=== PATIENT | male | born 1960 | race Caucasian/White ===

== ENCOUNTER 2016-10-10 19:17 | Inpatient (IN) | payer OTHER ==
[2016-10-10 19:49] VITALS: BMI 24.9
--- NOTE | 2016-10-10 20:28 | HP ---
CIWA Score - CIWA Score Nausea/Vomitin Muscle Tremors: 4-Moderate,w/Arms Extend Anxiety: 4-Mod. Anxious/Guarded Agitation: 4-Moderately Restless Paroxysmal Sweats: 1-Minimal Palms Moist Orientation: 1-Uncertain about Date Tacttile Disturbances: 0-None Auditory Disturbances: 0-None Visual Disturbances: 0-None Headache: 2-Mild CIWA-Ar Total Score: 18 Admission ROS [facility] - HPI Chief Complaint: withdrawal sx patient began xanax 8 mg po daily x 5 years, patient went to [facility] er for panic attack, no further treatment was provided at [facility], transferred to [facility] for xanax detox as per recommended by the ER Allergies/Adverse Reactions: Allergies Allergy/AdvReac Type Severity Reaction Status Date / Time Sulfa (Sulfonamide Allergy Unknown unknown Verified 09/15/11 20:00 Antibiotics) History of Present Illness: 55 years old male with long history of xanax dependence, has diabetes hypertension and panic attack is admitted to detox Exam Limitations: No Limitations - Ebola screening Have you traveled outside of the country in the last 21 days: No Have you had contact with anyone from an Ebola affected area: No Have you been sick,other than usual withdrawal symptoms: No Do you have a fever: No - Review of Systems Constitutional: Chills, Loss of Appetite, Changes in sleep, Unintentional Wgt. Loss EENT: reports: Blurred Vision (secondary to diabetes), Hearing Loss (wax) Respiratory: reports: No Symptoms reported Cardiac: reports: Palpitations GI: reports: Nausea, Poor Appetite, Poor Fluid Intake, Vomiting, Abdominal cramping : reports: No Symptoms Reported Musculoskeletal: reports: Back Pain Integumentary: reports: Change in Color (right andrea) Neuro: reports: Tremors Endocrine: reports: No Symptoms Reported Hematology: reports: No Symptoms Reported Psychiatric: reports: Judgement Intact, Anxious Other Systems: Reviewed and Negative Patient History - Patient Medical History Hx Anemia: No Hx Asthma: No Hx Chronic Obstructive Pulmonary Disease (COPD): No Hx Cancer: No Hx Cardiac Disorders: No Hx Congestive Heart Failure: No Hx Hypertension: No Hx Hypercholesterolemia: No Hx Pacemaker: No HX Cerebrovascular Accident: No Hx Seizures: No Hx Dementia: No Hx Diabetes: Yes Hx Gastrointestinal Disorders: No Hx Liver Disease: No Hx Genitourinary Disorders: No Hx Sexually Transmitted Disorders: No Hx Renal Disease (ESRD): No Hx Thyroid Disease: No Hx Human Immunodeficiency Virus (HIV): No Hx Hepatitis C: Yes Hx Depression: Yes Hx Suicide Attempt: No Hx Bipolar Disorder: No Hx Schizophrenia: No - Patient Surgical History Past Surgical History: No Hx Neurologic Surgery: No Hx Cataract Extraction: No Hx Cardiac Surgery: No Hx Lung Surgery: No Hx Breast Surgery: No Hx Breast Biopsy: No Hx Abdominal Surgery: No Hx Appendectomy: No Hx Cholecystectomy: No Hx Genitourinary Surgery: No Hx Orthopedic Surgery: Yes (right hand mid digital finger 1979) Anesthesia Reaction: No - PPD History Previous Implant?: Yes Documented Results: Negative w/o proof Implanted On Prior [facility] Admission?: No PPD to be Administered?: Yes - Smoking Cessation Smoking history: Never smoked Have you smoked in the past 12 months: No Aproximately how many cigarettes per day: 0 Hx Chewing Tobacco Use: No Initiated information on smoking cessation: No - Substance & Tx. History Hx Alcohol Use: No Hx Substance Use: Yes Substance Use Type: Tranquilizers Hx Substance Use Treatment: Yes - Substances Abused Alprazolam (Xanax) Route: Oral Frequency: Daily Amount used: 8 mg Age of first use: 50 Date of Last Use: 10/08/16 Family Disease History - Family Disease History Family Disease History: Heart Disease: Father (), Sister (), Respiratory: Mother () Admission Physical Exam S - Vital Signs Vital Signs: Vital Signs - 24 hr 10/10/16 19:34 Temperature 98.8 F Pulse Rate 98 H Respiratory 20 Rate Blood Pressure 157/94 - Physical General Appearance: Yes: Appropriately Dressed, Moderate Distress, Thin, Tremorous, Irritable, Sweating, Anxious HEENTM: Yes: Hearing grossly Normal, Normal ENT Inspection, Normocephalic, Normal Voice, Hearing Decreased (left ear wax) Respiratory: Yes: Chest Non-Tender, Lungs Clear, Normal Breath Sounds, No Respiratory Distress, No Accessory Muscle Use Neck: Yes: Supple, Trachea in good position Breast: Yes: Breasts Symetrical Cardiology: Yes: Regular Rhythm, Regular Rate, S1, S2 Abdominal: Yes: Non Tender, Soft, Increased Bowel Sounds Genitourinary: Yes: Within Normal Limits Back: Yes: Normal Inspection Musculoskeletal: Yes: full range of Motion, Gait Steady Extremities: Yes: Normal Range of Motion, Non-Tender, Tremors Neurological: Yes: Alert, Motor Strength 5/5, Normal Response, Numbness (both legs), Depressed Affect Integumentary: Yes: Warm, Moist Lymphatic: Yes: Within Normal Limits - Diagnostic (1) Sedative, hypnotic or anxiolytic dependence with withdrawal, uncomplicated Current Visit: Yes Status: Acute (2) Diabetes mellitus type II, controlled Current Visit: Yes Status: Acute Qualifiers: Diabetes mellitus complication status: with neurologic complications Diabetes mellitus complication detail: with other neurological complication Diabetes mellitus fdc insulin use: without fdc use Qualified Code(s): E11.49 - Type 2 diabetes mellitus with other diabetic neurological complication (3) Hypertension Current Visit: Yes Status: Acute Qualifiers: Hypertension type: essential hypertension Qualified Code(s): I10 - Essential (primary) hypertension (4) Hepatitis C antibody test positive Current Visit: Yes Status: Chronic (5) Weight loss Current Visit: Yes Status: Acute (6) Methadone maintenance therapy patient Current Visit: Yes Status: Acute Comment: 140 mg verification pending Cleared for Admission S - Detox or Rehab [facility] Level of Care: Medically Managed Detox Regimen/Protocol: Valium [facility] Breath Alcohol Content Breath Alcohol Content: 0 Urine Drug Screen - Results Drug Screen Negative: No Urine Drug Screen Results: BZO-Benzodiazepines, MTD-Methadone
[2016-10-10] MEDS ORDERED: MAG HYDROX/AL HYDROX/SIMETH 30 ML UNIT-DOSE CUP PO PRN (20:38)
[2016-10-10] MEDS ORDERED: guaiFENesin/D-METHORPHAN HB 10 ML UNIT-DOSE CUPS PO PRN (20:38)
[2016-10-10] MEDS ORDERED: IBUPROFEN 400 MG TABLET (FP) PO PRN (20:38)
[2016-10-10] MEDS ORDERED: P-EPHED 60MG/TRIPROLIDI 2.5MG TABLET PO PRN (20:38)
[2016-10-10] MEDS ORDERED: ACETAMINOPHEN 325 MG TABLET (FP) PO PRN (20:38)
[2016-10-10] MEDS ORDERED: diazePAM 5 MG TABLET PO ONE (20:38)
[2016-10-10] MEDS ORDERED: MAGNESIUM HYDROX 2400MG/30ML ORAL SUSPENSION 30 ML CUP PO PRN (20:38)
[2016-10-10] MEDS ORDERED: diphenhydrAMINE HCL 50 MG CAPSULE PO PRN (20:38)
[2016-10-10] MEDS ORDERED: MAGNESIUM CITRATE 300 ML BOTTLE PO PRN (20:38)
[2016-10-10] MEDS ORDERED: LOPERAMIDE HCL 2 MG CAPSULE PO PRN (20:38)
[2016-10-10] MEDS ORDERED: MENTHOL/PHENOL 1 EACH UD MM PRN (20:38)
[2016-10-10] MEDS ORDERED: ONDANSETRON *ODT* 4 MG TABLET SL PRN (20:47)
[2016-10-10] MEDS: ENALAPRIL MALEATE 5 MG TABLET (FP) PO SCH ×2 (21:48→22:55)
[2016-10-10] MEDS: THIAMINE HCL 100 MG TABLET (FP) PO SCH (23:21)
[2016-10-10] MEDS: CARBAMIDE PEROXIDE 6.5% OTIC 15 ML BOTTLE AS SCH (23:24)
[2016-10-10] MEDS: diazePAM 5 MG TABLET PO SCH (23:27)
[2016-10-11] MEDS: diazePAM 5 MG TABLET PO PRN ×3 (00:59→16:55)
[2016-10-11 01:16] LABS: URINE APPEARANCE CLEAR; URINE BILIRUBIN NEGATIVE (NEGATIVE); URINE BLOOD NEGATIVE (NEGATIVE); URINE COLOR AMBER; URINE GLUCOSE (UA) 1+ (NEGATIVE); URINE KETONE NEGATIVE (NEGATIVE); URINE LEUK ESTERASE NEGATIVE (NEGATIVE); URINE NITRITE NEGATIVE (NEGATIVE); URINE UROBILINOGEN 2.0 E.U/dl E.U./dl (0.2-1.0)
[2016-10-11 01:23] LABS: URINE PROTEIN 1+ (NEGATIVE)
[2016-10-11 01:27] LABS: URINE HYALINE CAST 11 /lpf; URINE MUCUS FEW; URINE RBC <1 /hpf (0-3); URINE WBC 3 /hpf (3-5)
[2016-10-11] MEDS: diazePAM 5 MG TABLET PO SCH ×3 (05:32→22:11)
[2016-10-11] MEDS ORDERED: metFORMIN HCL 500 MG TABLET (FP) PO SCH (07:00)
[2016-10-11] MEDS ORDERED: METHADONE HCL 10 MG TABLET PO SCH (08:45)
--- NOTE | 2016-10-11 09:30 | EKG ---
Test Reason : Blood Pressure : / mmHG Vent. Rate : 080 BPM Atrial Rate : 080 BPM P-R Int : 118 ms QRS Dur : 102 ms QT Int : 374 ms P-R-T Axes : 035 -66 003 degrees QTc Int : 431 ms NORMAL SINUS RHYTHM LEFT ANTERIOR FASCICULAR BLOCK ABNORMAL ECG WHEN COMPARED WITH ECG OF 15-SEP-2011 22:24, NO SIGNIFICANT CHANGE WAS FOUND Confirmed by ENIO DELA CRUZ MD ([id number]) on 10/11/2016 9:29:50 AM Referred By: Bruno Castañeda Confirmed By:ENIO DELA CRUZ MD
--- NOTE | 2016-10-11 09:50 | PN ---
S CIWA - CIWA Score Nausea/Vomitin Muscle Tremors: 4-Moderate,w/Arms Extend Anxiety: 4-Mod. Anxious/Guarded Agitation: 4-Moderately Restless Paroxysmal Sweats: 3 Orientation: 0-Oriented Tacttile Disturbances: 1-Very Mild Itch/Numbness Auditory Disturbances: 0-None Visual Disturbances: 0-None Headache: 0-None Present CIWA-Ar Total Score: 19 [facility] Progress Note (SOAP) Subjective: nausea, sweats, itnerrupted sleep, anxiety, tremor, Objective: 10/11/16 09:49 Vital Signs - 8 hr 10/11/16 10/11/16 03:27 06:00 Temperature 97.3 F L Pulse Rate 64 Respiratory 20 18 Rate Blood Pressure 124/64 Laboratory Tests 10/11/16 10/11/16 00:45 05:31 POC Glucometer 117 Urine Color Maria R Urine Appearance Clear Urine pH 5.0 D Ur Specific [place] 1.032 Urine Protein 1+ H Urine Glucose (UA) 1+ H Urine Ketones Negative Urine Blood Negative Urine Nitrite Negative Urine Bilirubin Negative Urine Urobilinogen 2.0 e.u/dl Ur Leukocyte Esterase Negative Urine RBC <1 Urine WBC 3 Ur Epithelial Cells Rare Hyaline Casts 11 Urine Mucus Few labs still pending Assessment: 10/11/16 09:49 withdrawal sx, methadone dose verified 140mg NATALIE crisostomo 10/10/2016 Plan: cont deto, methadone ordred, fluids
[2016-10-11] MEDS: PRENATAL VITAMINS W/ FOLIC ACID TABLET (FP) PO SCH (10:15)
[2016-10-11] MEDS ORDERED: METHADONE HCL 40 MG DISPERSABLE TABLET ONE (10:16)
[2016-10-11] MEDS: METHADONE 120 MG, METHADONE 20 MG PO SCH (10:16)
[2016-10-11] MEDS ORDERED: METHADONE HCL 10 MG TABLET ONE (10:16)
[2016-10-11] MEDS: NICOTINE 21 MG/24 HOURS TOPICAL PATCH TD SCH (10:18)
[2016-10-11 10:21] LABS: MCH 31.6 pg (25.7-33.7); MCHC 33.8 g/dl (32.0-35.9); MEAN CELL VOLUME 93.7 fl (80-96); MEAN PLT VOLUME 7.9 fl (7.5-11.1); PLATELET COUNT 130 K/MM3 (134-434); RDW 13.1 % (11.9-15.9); WHITE BLOOD COUNT 9.5 K/mm3 (4.0-10.0)
[2016-10-11] MEDS: ENALAPRIL MALEATE 5 MG TABLET (FP) PO SCH ×2 (11:09→11:39)
[2016-10-11] MEDS: CARBAMIDE PEROXIDE 6.5% OTIC 15 ML BOTTLE AS SCH ×2 (11:51→22:13)
[2016-10-11 12:12] LABS: ALBUMIN 3.8 g/dl (3.4-5.0); ALK PHOS 54 U/L (45-117); ANION GAP 12 (8-16); CALCIUM 8.6 mg/dL (8.5-10.1); CO2 31 mmol/L (21-32); CREATININE 1.1 mg/dL (0.7-1.3); GLUCOSE,RANDOM 84 mg/dL (74-106); SGOT/AST 77 U/L (15-37); SGPT/ALT 65 U/L (12-78); TOT PROT 6.8 g/dl (6.4-8.2)
--- NOTE | 2016-10-11 14:38 | CONSULT ---
[facility] Psychiatric Consult - Data Date of interview: 10/11/16 Admission source: [facility] Identifying data: First admission to [facility] for this 55 y/o male seeking detox treatment on for opioid and benzodiazepine dependence ( xanax).Patient is single without children,domiciled,unemployed and reportedly deprived of any source of income. Substance Abuse History: - Smoking Cessation. Smoking history: Never smoked. Have you smoked in the past 12 months: No. Aproximately how many cigarettes per day: 0. Hx Chewing Tobacco Use: No. Initiated information on smoking cessation: No. - Substance & Tx. History. Hx Alcohol Use: No. Hx Substance Use: Yes. Substance Use Type: Tranquilizers. Hx Substance Use Treatment: Yes. - Substances Abused. Alprazolam (Xanax). Route: Oral. Frequency: Daily. Amount used: 8 mg. Age of first use: 50. Date of Last Use: 10/08/16. Discussed with patient in this interview.He confirmed this pattern of substance use. Medical History: Hepatitis C,hypertension and diabetes mellitus. Psychiatric History: No reported history of psychiatric hospitalizations.No OPD care.Patient reports being prescribed xanax up to 8 mg daily (five years of abuse).Mr Devaughn denies history of suicide attempts.Currently on methadone maintenace (140 mg/day) at the [facility] MMT program. Physical/Sexual Abuse/Trauma History: Patient denies. Additional Comment: Urine Drug Screen Results: BZO-Benzodiazepines, MTD- Methadone.Noted. Mental Status Exam - Mental Status Exam Alert and Oriented to: Time, Place, Person Cognitive Function: Good Patient Appearance: Unkempt, Disheveled Mood: Withdrawn, Anxious Affect: Mood Congruent Patient Behavior: Appropriate, Cooperative Speech Pattern: Clear Voice Loudness: Normal Thought Process: Goal Oriented Thought Disorder: Not Present Hallucinations: Denies Suicidal Ideation: Denies Homicidal Ideation: Denies Insight/Judgement: Poor Sleep: Poorly Appetite: Good Muscle strength/Tone: Normal Gait/Station: Normal Psychiatric Findings - Problem List ([place] 1, 2,3) (1) Methadone maintenance therapy patient Current Visit: Yes Status: Acute Comment: 140 mg verification pending (2) Sedative, hypnotic or anxiolytic dependence with withdrawal, uncomplicated Current Visit: Yes Status: Acute (3) Diabetes mellitus type II, controlled Current Visit: Yes Status: Chronic Qualifiers: Diabetes mellitus complication status: with neurologic complications Diabetes mellitus complication detail: with other neurological complication Diabetes mellitus mcfp insulin use: without mcfp use Qualified Code(s): E11.49 - Type 2 diabetes mellitus with other diabetic neurological complication (4) Hypertension Current Visit: Yes Status: Chronic Qualifiers: Hypertension type: essential hypertension Qualified Code(s): I10 - Essential (primary) hypertension (5) Weight loss Current Visit: Yes Status: Chronic (6) Hepatitis C antibody test positive Current Visit: Yes Status: Chronic - Initial Treatment Plan Initial Treatment Plan: Psychoeducation.Detoxification.Zolpidem 5 mg po hs prn.Patient made aware of risk of parasomnias.He agrees with this plan.Observation.
[2016-10-11] MEDS: metFORMIN HCL 500 MG TABLET (FP) PO SCH (16:54)
[2016-10-11] MEDS: THIAMINE HCL 100 MG TABLET (FP) PO SCH (22:12)
[2016-10-11] MEDS: ZOLPIDEM TARTRATE 5 MG TABLET PO PRN (22:12)
[2016-10-12] MEDS ORDERED: METHADONE HCL 10 MG TABLET ONE (05:11)
[2016-10-12] MEDS ORDERED: METHADONE HCL 40 MG DISPERSABLE TABLET ONE (05:12)
[2016-10-12] MEDS: METHADONE 120 MG, METHADONE 20 MG PO SCH (05:30)
[2016-10-12] MEDS: diazePAM 5 MG TABLET PO PRN ×3 (05:33→18:20)
[2016-10-12] MEDS: metFORMIN HCL 500 MG TABLET (FP) PO SCH ×2 (08:00→16:55)
[2016-10-12] MEDS: PRENATAL VITAMINS W/ FOLIC ACID TABLET (FP) PO SCH (10:23)
[2016-10-12] MEDS: diazePAM 5 MG TABLET PO SCH ×2 (10:23→22:06)
[2016-10-12] MEDS: ENALAPRIL MALEATE 5 MG TABLET (FP) PO SCH (10:23)
[2016-10-12] MEDS: CARBAMIDE PEROXIDE 6.5% OTIC 15 ML BOTTLE AS SCH ×2 (10:24→22:06)
[2016-10-12] MEDS: NICOTINE 21 MG/24 HOURS TOPICAL PATCH TD SCH (10:24)
--- NOTE | 2016-10-12 11:24 | PN ---
[facility] CIWA - CIWA Score Nausea/Vomitin-No Nausea/No Vomiting Muscle Tremors: 4-Moderate,w/Arms Extend Anxiety: 4-Mod. Anxious/Guarded Agitation: 3 Paroxysmal Sweats: 3 Orientation: 0-Oriented Tacttile Disturbances: 0-None Auditory Disturbances: 0-None Visual Disturbances: 0-None Headache: 0-None Present CIWA-Ar Total Score: 14 S Progress Note (SOAP) Subjective: SWEATING,ANXIETY,TREMORS,INTERRUPTED SLEEP,RESTLESS Objective: 10/12/16 11:23 Vital Signs - 8 hr 10/12/16 10/12/16 10/12/16 03:30 06:00 10:00 Temperature 97.9 F 97.9 F Pulse Rate 58 L 70 Respiratory 18 18 18 Rate Blood Pressure 121/69 129/73 Laboratory Last Values WBC 9.5 K/mm3 (4.0-10.0) D 10/11/16 07:40 RBC 4.57 M/mm3 (4.00-5.60) 10/11/16 07:40 Hgb 14.4 GM/dL (11.7-16.9) 10/11/16 07:40 Hct 42.8 % (35.4-49) 10/11/16 07:40 MCV 93.7 fl (80-96) 10/11/16 07:40 MCHC 33.8 g/dl (32.0-35.9) 10/11/16 07:40 RDW 13.1 % (11.9-15.9) 10/11/16 07:40 Plt Count 130 K/MM3 (134-434) L D 10/11/16 07:40 MPV 7.9 fl (7.5-11.1) 10/11/16 07:40 Sodium 140 mmol/L (136-145) 10/11/16 07:40 Potassium 4.0 mmol/L (3.5-5.1) 10/11/16 07:40 Chloride 97 mmol/L (98-107) L 10/11/16 07:40 Carbon Dioxide 31 mmol/L (21-32) 10/11/16 07:40 Anion Gap 12 (8-16) 10/11/16 07:40 BUN 34 mg/dL (7-18) H D 10/11/16 07:40 Creatinine 1.1 mg/dL (0.7-1.3) D 10/11/16 07:40 Creat Clearance w eGFR > 60 (>60) 10/11/16 07:40 POC Glucometer 97 UNITS (()) 10/12/16 05:32 Random Glucose 84 mg/dL (74-106) D 10/11/16 07:40 Calcium 8.6 mg/dL (8.5-10.1) 10/11/16 07:40 Total Bilirubin 1.0 mg/dL (0.2-1.0) D 10/11/16 07:40 AST 77 U/L (15-37) H D 10/11/16 07:40 ALT 65 U/L (12-78) D 10/11/16 07:40 Alkaline Phosphatase 54 U/L (45-117) 10/11/16 07:40 Total Protein 6.8 g/dl (6.4-8.2) 10/11/16 07:40 Albumin 3.8 g/dl (3.4-5.0) 10/11/16 07:40 Urine Color Maria R 10/11/16 00:45 Urine Appearance Clear 10/11/16 00:45 Urine pH 5.0 (5.0-8.0) D 10/11/16 00:45 Ur Specific [place] 1.032 (1.001-1.035) 10/11/16 00:45 Urine Protein 1+ (NEGATIVE) H 10/11/16 00:45 Urine Glucose (UA) 1+ (NEGATIVE) H 10/11/16 00:45 Urine Ketones Negative (NEGATIVE) 10/11/16 00:45 Urine Blood Negative (NEGATIVE) 10/11/16 00:45 Urine Nitrite Negative (NEGATIVE) 10/11/16 00:45 Urine Bilirubin Negative (NEGATIVE) 10/11/16 00:45 Urine Urobilinogen 2.0 e.u/dl E.U./dl (0.2-1.0) 10/11/16 00:45 Ur Leukocyte Esterase Negative (NEGATIVE) 10/11/16 00:45 Urine RBC <1 /hpf (0-3) 10/11/16 00:45 Urine WBC 3 /hpf (3-5) 10/11/16 00:45 Ur Epithelial Cells Rare /hpf (FEW) 10/11/16 00:45 Hyaline Casts 11 /lpf 10/11/16 00:45 Urine Mucus Few 10/11/16 00:45 RPR Titer Nonreactive (NONREACTIVE) 10/11/16 07:40 LABS NOTED Assessment: 10/12/16 11:24 WITHDRAWAL SX. Plan: CONTINUE DETOX
[2016-10-12] MEDS: THIAMINE HCL 100 MG TABLET (FP) PO SCH (22:06)
[2016-10-12] MEDS: ZOLPIDEM TARTRATE 5 MG TABLET PO PRN (22:06)
[2016-10-13] MEDS ORDERED: METHADONE HCL 40 MG DISPERSABLE TABLET ONE (04:14)
[2016-10-13] MEDS ORDERED: METHADONE HCL 10 MG TABLET ONE (04:14)
[2016-10-13] MEDS: METHADONE 120 MG, METHADONE 20 MG PO SCH (04:58)
[2016-10-13] MEDS: diazePAM 5 MG TABLET PO PRN ×3 (07:08→16:56)
[2016-10-13] MEDS: metFORMIN HCL 500 MG TABLET (FP) PO SCH ×2 (07:09→16:56)
--- NOTE | 2016-10-13 09:50 | PN ---
[facility] Progress Note (SOAP) Subjective: diarrhea sweats interrupted sleep Objective: 10/13/16 09:49 Vital Signs Temperature 97.3 F L 10/13/16 05:17 Pulse Rate 72 10/13/16 05:17 Respiratory Rate 18 10/13/16 06:30 Blood Pressure 125/72 10/13/16 05:17 O2 Sat by Pulse Oximetry (%) awake/alert ambulating no acute distress Assessment: 10/13/16 09:49 withdrawal sx Plan: continue detox increase fluids immodium prn d/c in am
[2016-10-13] MEDS: PRENATAL VITAMINS W/ FOLIC ACID TABLET (FP) PO SCH (10:05)
[2016-10-13] MEDS: CARBAMIDE PEROXIDE 6.5% OTIC 15 ML BOTTLE AS SCH ×2 (10:05→22:07)
[2016-10-13] MEDS: diazePAM 5 MG TABLET PO SCH ×2 (10:05→22:05)
[2016-10-13] MEDS: ENALAPRIL MALEATE 5 MG TABLET (FP) PO SCH (10:05)
[2016-10-13] MEDS: NICOTINE 21 MG/24 HOURS TOPICAL PATCH TD SCH (10:05)
[2016-10-13] MEDS: ZOLPIDEM TARTRATE 5 MG TABLET PO PRN (22:00)
[2016-10-13] MEDS: THIAMINE HCL 100 MG TABLET (FP) PO SCH (22:05)
[2016-10-14] MEDS ORDERED: METHADONE HCL 10 MG TABLET ONE (04:36)
[2016-10-14] MEDS ORDERED: METHADONE HCL 40 MG DISPERSABLE TABLET ONE (04:36)
[2016-10-14] MEDS: METHADONE 120 MG, METHADONE 20 MG PO SCH (05:17)
[2016-10-14] MEDS: metFORMIN HCL 500 MG TABLET (FP) PO SCH (08:00)
--- NOTE | 2016-10-14 08:33 | DS ---
[facility] Detox Discharge Summary Admission Date: 10/10/16 Discharge Date: 10/14/16 - History Present History: Opioid Dependence, Sedative Dependence - Physical Exam Results Vital Signs: Vital Signs Temperature 98.1 F 10/14/16 06:15 Pulse Rate 68 10/14/16 06:15 Respiratory Rate 18 10/14/16 06:15 Blood Pressure 127/73 10/14/16 06:15 O2 Sat by Pulse Oximetry (%) - Treatment Hospital Course: Detox Protocol Followed, Detoxed Safely, Responded well, Discharged Condition Good, Rehab Referral Accepted - Medication Discharge Medications: Ambulatory Orders Metformin HCl [Glucophage] 500 mg PO BID 09/15/11 Methadone [Dolophine -] 140 mg pe PO DAILY 09/15/11 Enalapril Maleate [Vasotec -] 5 mg PO DAILY 10/10/16 - Diagnosis (1) Methadone maintenance therapy patient Current Visit: Yes Status: Chronic (2) Sedative, hypnotic or anxiolytic dependence with withdrawal, uncomplicated Current Visit: Yes Status: Chronic (3) Diabetes mellitus type II, controlled Current Visit: Yes Status: Chronic Qualifiers: Diabetes mellitus complication status: with neurologic complications Diabetes mellitus complication detail: with other neurological complication Diabetes mellitus long term care phlebotomist insulin use: without fci use Qualified Code(s): E11.49 - Type 2 diabetes mellitus with other diabetic neurological complication (4) Hepatitis C antibody test positive Current Visit: Yes Status: Chronic (5) Hypertension Current Visit: Yes Status: Chronic Qualifiers: Hypertension type: essential hypertension Qualified Code(s): I10 - Essential (primary) hypertension (6) Weight loss Current Visit: Yes Status: Chronic - AMA Did Patient Leave Against Medical Advice: No
[2016-10-14 09:31] VITALS: BP 136/80; PULSE 76; TEMP 97.7
[2016-10-14] MEDS ORDERED: diazePAM 5 MG TABLET PO SCH (10:00)
== END 2016-10-14 09:38 | disposition home or self-care (01) | DRG 773 ==
LOC: YASAS 19:17 → Y6N 20:41
PROVIDERS: ADMIT Internal Medicine; ATTEND Internal Medicine
PROC: HZ2ZZZZ Detoxification Services for Substance Abuse Treatment (ICD-10-PCS; principal; 2016-10-14)
DX: F11.20 Opioid dependence, uncomplicated (principal); F13.230 Sedative, hypnotic or anxiolytic dependence with withdrawal, uncomplicated; I10 Essential (primary) hypertension; E11.49 Type 2 diabetes mellitus with other diabetic neurological complication; Z79.84 Long term (current) use of oral hypoglycemic drugs; R63.4 Abnormal weight loss; Z68.25 Body mass index [BMI] 25.0-25.9, adult
CPT/HCPCS: 36415; 80053; 81003; 81015; 85027; 86593; 93005; 93010